=== PATIENT | male | born 1990 | race Caucasian/White ===

== ENCOUNTER 2023-07-20 03:06 | Inpatient (IN) ==
[2023-07-20] MEDS ORDERED: ONDANSETRON INJ 2 MG/ML 2 ML VIAL IV STA (03:20)
[2023-07-20] MEDS ORDERED: HYDROmorphone INJ 0.5 MG/0.5 ML SYR IV STA ×2 (03:20→06:03)
[2023-07-20] MEDS: KETOROLAC TROMETHAMINE 10 MG TABLET PO STA ×2 (03:39→04:05)
[2023-07-20] MEDS ORDERED: KETOROLAC TROMETHAMINE 15 MG/ML VIAL IV ONE (03:57)
[2023-07-20] MEDS ORDERED: SODIUM CHLORIDE 0.9% 1000ML 1,000 ML IV ONE ×2 (03:57→05:12)
[2023-07-20 04:01] LABS: Basophils # (auto) 0.01 K/uL (0.00-0.20); Basophils % (auto) 0.1 %; Eosinophils # (auto) 0.02 K/uL (0.00-0.50); Eosinophils % (auto) 0.2 %; Hematocrit (blood only) 44.9 % (42.0-52.0); Hemoglobin 15.7 g/dl (14.0-18.0); Immature Granulocytes # (auto) 0.02 K/uL (0.01-0.20); Immature Granulocytes % (auto) 0.2 %; Lymphocytes # (auto) 0.69 K/uL (1.20-3.40); Lymphocytes % (auto) 7.7 %; Mean Corpuscular Volume 88.7 fL (80.0-100.0); Mean Platelet Volume 9.5 fL (9.4-12.4); Monocytes # (auto) 0.35 K/uL (0.11-0.59); Monocytes % (auto) 3.9 %; Neutrophils # (auto) 7.83 K/uL (1.40-6.50); Neutrophils % (auto) 87.9 %; Platelet Count 247 K/uL (130-400); RDW Coefficient of Variation 11.7 % (11.5-14.5); RDW Standard Deviation 37.2 fL (36.4-46.3); Red Blood Count 5.06 M/uL (4.70-6.10); White Blood Count 8.92 K/ul (4.8-10.8)
[2023-07-20 04:32] LABS: Alanine Aminotransferase 36 U/L (7-52); Albumin Globulin Ratio 1.4 (0.9-2); Albumin Level 4.8 gm/dl (3.4-5.0); Alkaline Phosphatase 53 U/L (34-104); BUN Creatinine Ratio 14.4 (10-20); Bilirubin,Total 0.8 mg/dl (0.2-1.0); Blood Urea Nitrogen 17 mg/dl (6-23); Calcium 9.6 mg/dl (8.6-10.3); Carbon Dioxide 25 mmol/L (21-32); Chloride 100 mmol/L (98-107); Creatinine Clr Calc Pharmacy 85.7 ml/min; Est GFR (African American) 94.1 ml/min; Est GFR (Non-African American) 81.2 ml/min; Globulin 3.5 gm/dl (2.5-4.0); Glucose 115 mg/dl (70-99(Fasting)); Lipase 37 U/L (11-82); Total Protein 8.3 gm/dl (6.0-8.3)
[2023-07-20 05:04] LABS: Appearance Urine Clear (Clear); Bacteria Urine Automated Negative (Negative); Bilirubin Urine Negative (Negative); Blood Urine Negative (Negative); Color Urine Dark Yellow; Glucose Urine UA Negative (Negative); Ketones Urine 4+ (Negative); Leukocyte Esterase Urine Negative (Negative); Nitrite Urine Negative (Negative); Protein Urine 1+ (Negative); RBC Urine Automated 0-4 /hpf (0-4); Specific Gravity Urine 1.032 (1.000-1.030); Urobilinogen Urine Negative (Negative)
--- NOTE | 2023-07-20 07:38 | History & Physical Report ---
Date of Service July 20, 2023 Assessment & Plan (1) Right ureteral calculus: Plan: Renal Colic: Obstructive Uropathy: -KUB:No change in the 3 mm distal right ureteral stone. -Renal USD:No change in the mild right hydroureteronephrosis. The patient's known distal right ureteral stone is not identified by this modality. -UA not suggestive of UTI No signs of Sepsis Continue IV fluids Continue Flomax Pyridium PRN Urology consulted--appreciate input Strain Urine Bladder scan PRN Pain control Sinus bradycardia with Premature atrial complexes Asymptomatic Check TSH, Lyme screen Monitor Dysplastic nevus As per records DVT Px: SCDs for now CODE STATUS Full code History of Present Illness Chief Complaint: Right Flank Pain Primary Care Provider: Pedro Collins MD Patient is a 33-year-old male with history of dysplastic nevus as per records and no other significant past medical history presents with history of right lower quadrant/flank pain radiating to right groin for the past 4 to 5 days duration which has been gradually worsening. Patient describes pain to be sharp, 8/10 intensity, no aggravating, relieving factors. Denies any associated hematuria, dysuria, fever, chills, chest pain, dyspnea, dizziness. Admits to have nausea associated with vomiting x5 overnight secondary to pain. Renal ultrasound suggestive of right hydroureteronephrosis. KUB showed 3 mm distal right ureteral stone. Patient required several doses of IV narcotics for pain control while in ED. He presented to ED on July 16 with similar symptoms and was discharged home on Flomax, Zofran and as needed pain medications. He was advised to follow-up with urologist if could not pass the stone spontaneously. Denied any history of nephrolithiasis in the past. Allergies Allergy/AdvReac Type Severity Reaction Status Date / Time No Known Allergies Allergy Unknown Verified 06/17/09 19:11 Home Medications Medication Instructions Recorded Confirmed Type ibuprofen 600 mg tablet 600 mg PO Q6HR PRN ##0 07/04/09 07/20/23 History polyethylene glycol 3350 17 gram 17 g PO PRN ##0 07/04/09 07/20/23 History oral powder packet (Miralax) ondansetron 4 mg disintegrating 4 mg PO Q6H PRN nausea and 07/16/23 07/20/23 Rx tablet vomiting #12 tabs oxycodone 5 mg tablet 5 mg PO Q6 PRN pain #12 tabs 07/16/23 07/20/23 Rx tamsulosin 0.4 mg capsule (Flomax) 0.4 mg PO DAILY #10 caps 07/16/23 07/20/23 Rx bisacodyl 10 mg rectal suppository 10 mg [place] DAILY PRN Constipation 07/20/23 07/20/23 History (Dulcolax (bisacodyl)) Past Med/Surg History Medical History (Updated 07/20/23 @ 14:16 by Jonathan Barnett MD) Dysplastic nevus No significant medical problems Surgical History (Updated 07/20/23 @ 14:17 by Jonathan Barnett MD) History of appendectomy Family History (Updated 07/20/23 @ 14:18 by Jonathan Barnett MD) Brother Hypertension Social History (Updated 07/20/23 @ 14:17 by Jonathan Barnett MD) Smoking Status: Never smoker Hx Alcohol Use: No Hx Substance Use: No Preferred Language: Kittitian Feels Safe at Home: Yes Review of Systems Review of Systems: All systems reviewed & are unremarkable except as noted in Subjective Physical Exam Physical Exam: Physical Exam: Vitals signs as noted above General Appearance:Thin, no apparent distress Head: normocephalic, Atraumatic Eyes: normal inspection, EOMI Neck: supple, Trachea midline Respiratory/Chest: Normal breath sounds, CTA, No accessory muscle use Cardiovascular: S1, S2, No murmur Abdomen/GI:Soft, R flank tender, Bowel sounds present Extremities/Musculoskeletal:normal inspection, no edema Neurologic/Psych:AAOX3, grossly no focal neurological deficits Skin: normal color, warm Results & Data Results & Data Vital Signs (Past 12 Hours) Vital Signs Temp Pulse Pulse Resp BP BP Pulse Ox 07/20/23 06:24 79 18 145/93 H 98 07/20/23 03:55 50 L 07/20/23 04:33 73 18 111/84 92 07/20/23 03:10 37.1 C 77 17 134/77 100 O2 Del Method 07/20/23 06:24 Room Air 07/20/23 03:55 07/20/23 04:33 Room Air 07/20/23 03:10 Room Air Laboratory Results Short CBC 07/20/23 Range/Units 03:43 WBC 8.92 (4.8-10.8) K/ul Hgb 15.7 (14.0-18.0) g/dl Hct 44.9 (42.0-52.0) % Plt Count 247 (130-400) K/uL BMP 07/20/23 07/20/23 03:40 05:08 Sodium TNP 136 Potassium TNP 4.0 Chloride 100 Carbon Dioxide 25 BUN 17 Creatinine 1.18 Glucose 115 H Calcium 9.6 Liver Function 07/20/23 07/20/23 Range/Units 03:40 05:08 Total Bilirubin 0.8 (0.2-1.0) mg/dl AST TNP 19 ALT 36 (7-52) U/L Alkaline Phosphatase 53 (34-104) U/L Albumin 4.8 (3.4-5.0) gm/dl Urine 07/20/23 Range/Units 04:53 Urine Color Dark Yellow Urine Appearance Clear (Clear) Urine pH 6.0 (4.5-7.5) Ur Specific [place] 1.032 H (1.000-1.030) Urine Protein 1+ H (Negative) Urine Glucose (UA) Negative (Negative) Diagnostic Findings --KUB:No change in the 3 mm distal right ureteral stone. --Renal USD:No change in the mild right hydroureteronephrosis. The patient's known distal right ureteral stone is not identified by this modality. ECG Additional Comments: EKG: Sinus bradycardia with PACs QTc 376
--- NOTE | 2023-07-20 07:48 | XRay Report ---
KUB HISTORY: R flank pain, known stone COMPARISON: Abdomen and pelvis CT 07/16/2023. FINDINGS: The bowel gas pattern is unremarkable. There are no dilated loops of small bowel to suggest an obstruction. There is a 3 mm stone within the distal right ureter. This is unchanged in position compared the prior CT examination. Additional calcifications in the deep pelvis are consistent with phleboliths. No additional ureteral calculi. No pneumoperitoneum or pneumatosis. IMPRESSION: No change in the 3 mm distal right ureteral stone. ACT 112: Negative or not required by law. Electronically signed by: Matias Guzman M.D. 07/20/2023 7:46 AM
--- NOTE | 2023-07-20 07:50 | Ultrasound Report ---
RENAL ULTRASOUND HISTORY: R flank pain, known stone. [place]? COMPARISON: Abdomen and pelvis CT 07/16/2023. FINDINGS: Right kidney: 10.4 cm. Mild right hydroureteronephrosis. The patient's known distal right ureteral st one is not identified by this modality. Normal corticomedullary differentiation and cortical thicknes s. Trace right perinephric fluid. Left kidney: 11.6 cm. No hydronephrosis. Normal corticomedullary differentiation and cortical thickne ss. Bladder: No bladder wall thickening. Only the left ureteral jet was identified. IMPRESSION: No change in the mild right hydroureteronephrosis. The patient's known distal right ureteral stone is not identified by this modality. ACT 112: Negative or not required by law. Electronically signed by: Matias Guzman M.D. 07/20/2023 7:49 AM
--- NOTE | 2023-07-20 08:28 | Urology Consultation ---
Date of Consultation July 20, 2023 Assessment & Plan (1) Right ureteral calculus: (2) Acute right flank pain: (3) Vomiting: (4) Renal colic: (5) Hematuria: Plan Patient be admitted for right 4 mm ureteral stone in the distal ureter causing obstruction. Developed sudden onset of severe pain flank going into groin and abdomen. Patient was having symptoms considerable ill feelings with it. Has been going on and off. Had presented earlier in the week with similar issues. Stone is in similar position. Comes in waves. Severity has come and gone. Patient had been given medications for control. Has previously had some bowel related issues and takes some [id number] options for constipation. Has been having increasing pain discomfort. White count is stable at 8.92. Creatinine was 1.18. Hemoglobin was 15.7. All other labs were reviewed please see records for full report. Patient's vitals are currently stable is doing with mild hypertension possibly due to ongoing issues with pain. Blood pressure is 145/93. Pulse was 54. Was not satting 96% on room air. No signs of fever while in the ER. No measurable temperature over 38 C. Patient had imaging that was reviewed interpreted by myself. Has obstructing stone on the right side at the distal ureter causing obstruction and hydronephrosis. Discussed options for conservative measure and maximum expulsion medical therapy and symptom controlled. Discussed ESWL. Discussed Ureteroscopy with extraction and/or laser lithotripsy. Risks and benefits were discussed. Stone free rates were also discussed as well as possibility of multiple procedures. Ureteral stents were discussed as well as post-operative issues and pain management. All questions were answered. Reviewed extensively options. Patient is being admitted for supportive care with IV hydration. Is being admitted to the hospitalist team. We will plan to continue to monitor patient. All labs and vitals reviewed. Patient's complicated medical and surgical history was reviewed and summarized above. Discussed patient's previous history. No major family history of significant anesthesia or other issues. Reviewed possible surgical intervention with possible extraction of stone for stent placement. Risks and benefits discussed at length for procedure. These include bleeding, infection, injury to surrounding tissues or organs, and risks associated with anesthesia. Patient states understanding and agrees to proceed. Will sign consent and schedule. Plan for Cystoscopy with Right Ureteroscopy and stone treatment. Possible stent. History of Present Illness History of Present Illness New consultation for patient with stone, discomfort, obstruction, and ill feelings. Patient developed sudden onset of pain into flank going down and radiating into groin and back in waves comes and goes. Can be severe at times. Discussed and reviewed patient's family history for any history of stone di sease. Also, discussed patient's medical surgery history especially related to any history of urinary issues or stone disease. Patient was admitted and is undergoing observation. Allergies Allergy/AdvReac Type Severity Reaction Status Date / Time No Known Allergies Allergy Unknown Verified 06/17/09 19:11 Home Medications Medication Instructions Recorded Confirmed Type ibuprofen 600 mg tablet 600 mg PO Q6HR PRN ##0 07/04/09 07/20/23 History polyethylene glycol 3350 17 gram 17 g PO PRN ##0 07/04/09 07/20/23 History oral powder packet (Miralax) ondansetron 4 mg disintegrating 4 mg PO Q6H PRN nausea and 07/16/23 07/20/23 Rx tablet vomiting #12 tabs oxycodone 5 mg tablet 5 mg PO Q6 PRN pain #12 tabs 07/16/23 07/20/23 Rx tamsulosin 0.4 mg capsule (Flomax) 0.4 mg PO DAILY #10 caps 07/16/23 07/20/23 Rx bisacodyl 10 mg rectal suppository 10 mg [place] DAILY PRN Constipation 07/20/23 07/20/23 History (Dulcolax (bisacodyl)) Patient History Medical History No significant medical problems Social History Smoking Status: Never smoker Preferred Language: Swazi Feels Safe at Home: Yes Review of Systems Review of Systems: All systems reviewed & are unremarkable except as noted in HPI & below Physical Exam Physical Exam: General: Alert and oriented x 3 in no acute distress. Patient is well nourished and well kept. HEENT: Normocephalic Atraumatic. Inspection normal. Cranial Nerves 2-12 Grossly intact. Nares are clear. Neck is supple. Normal inspection of face. Normal inspection of neck. Neurologic: No deficits on inspection. Baseline for motor function and sensory. Psychologic: Normal affect. Respiratory: Nonlabored. No use of accessory muscles. No tachypnea or dyspnea. Cardiovascular: No tachycardia Skin: [place] and Dry. No rashes or visible lesions. Extremities: Moving without issues. No motor deficits on inspection Lymphatics: No edema Abdomen: Soft Non-distended. No acites. No rebound or guarding. Results & Data Vital Signs (Past 12 Hours) Vital Signs Temp Pulse Pulse Resp BP BP Pulse Ox 07/20/23 08:17 54 L 18 96 07/20/23 08:17 96 07/20/23 07:59 62 07/20/23 06:24 79 18 145/93 H 98 07/20/23 03:55 50 L 07/20/23 04:33 73 18 111/84 92 07/20/23 03:10 37.1 C 77 17 134/77 100 O2 Del Method 07/20/23 08:17 Room Air 07/20/23 08:17 Room Air 07/20/23 07:59 07/20/23 06:24 Room Air 07/20/23 03:55 07/20/23 04:33 Room Air 07/20/23 03:10 Room Air PG Care Time/CCT Total # of Minutes Spent Total Time Spent with Patient: Total time spent is greater than 50% in coordination of care (as documented) at patient's floor/unit and/or counseling patient: Coding Level of Care Code 58951 IN/OBS CONSULT LVL 5,80M Diagnoses Right ureteral calculus N20.1 Acute right flank pain R10.9 Vomiting R11.2 Nausea presence: with nausea Vomiting type: unspecified Renal colic N23 Hematuria R31.1 Hematuria type: benign essential microscopic (3) Vomiting Nausea presence: with nausea Vomiting type: unspecified Qualified Code(s): R11.2 - Nausea with vomiting, unspecified (5) Hematuria Hematuria type: benign essential microscopic Qualified Code(s): R31.1 - Benign essential microscopic hematuria
[2023-07-20] MEDS ORDERED: ACETAMINOPHEN 325 MG TAB PO PRN (11:24)
[2023-07-20] MEDS ORDERED: DOCUSATE SODIUM 100 MG CAP PO PRN (11:24)
[2023-07-20] MEDS ORDERED: POLYETHYLENE (MIRALAX) 17 GM PACK PO PRN (11:24)
[2023-07-20] MEDS ORDERED: KETOROLAC TROMETHAMINE 15 MG/ML VIAL IV PRN (11:24)
[2023-07-20] MEDS ORDERED: ONDANSETRON INJ 2 MG/ML 2 ML VIAL IV PRN (11:24)
[2023-07-20] MEDS ORDERED: HYDROmorphone INJ 0.5 MG/0.5 ML SYR IV PRN (11:32)
[2023-07-20] MEDS ORDERED: LIDOCAINE 2% 2 ML VIAL/AMP(20MG/ML) INFIL ONE (11:35)
[2023-07-20] MEDS ORDERED: MIDAZOLAM HCL 1 MG/ML 2ML VIAL ONE (11:35)
[2023-07-20] MEDS ORDERED: ONDANSETRON INJ 2 MG/ML 2 ML VIAL ONE (11:35)
[2023-07-20] MEDS ORDERED: fentaNYL citrate PF 100 MCG/2 ML VIAL ONE (11:35)
[2023-07-20] MEDS ORDERED: KETAMINE 50 MG/5 ML SYRINGE ONE (11:35)
[2023-07-20] MEDS ORDERED: PROPOFOL IV EMULSION 10 MG/ML 20 ML VIAL IV ONE ×2 (11:35→12:25)
[2023-07-20] MEDS ORDERED: TAMSULOSIN HCL 0.4 MG CAP PO ONE (11:45)
[2023-07-20] MEDS ORDERED: FAMOTIDINE 10 MG TABLET PO ONE (11:45)
--- NOTE | 2023-07-20 11:52 | Anesthesiology Consultation ---
Date of Service July 20, 2023 Assessment & Plan Chart Review Chart Review: Acceptable Risk for Surgery and Patient NOT seen in Pre Admission Testing ASA ASA2 Proposed Anesthesia Anesthesia Type: MAC Risk / Benefits Reviewed With: PT / POA / Parent / Guardian, Accepts Plan and Informed Consent Obtained History Surgery Operation Date: 07/20/23 15:00 Proposed Procedures p Cystoscopy with Right Ureteral Stent Insertion - Teddy Marquez DO Height/Weight Height: 6 ft Weight: 67.4 kg Allergies Allergy/AdvReac Type Severity Reaction Status Date / Time No Known Allergies Allergy Unknown Verified 06/17/09 19:11 Medications Home Medications Medication Instructions Recorded Confirmed Last Taken ibuprofen 600 mg tablet 600 mg PO Q6HR PRN ##0 07/04/09 07/20/23 Unknown polyethylene glycol 3350 17 gram 17 g PO PRN ##0 07/04/09 07/20/23 Unknown oral powder packet (Miralax) ondansetron 4 mg disintegrating 4 mg PO Q6H PRN nausea and 07/16/23 07/20/23 Un known tablet vomiting #12 tabs oxycodone 5 mg tablet 5 mg PO Q6 PRN pain #12 tabs 07/16/23 07/20/23 Unknown tamsulosin 0.4 mg capsule (Flomax) 0.4 mg PO DAILY #10 caps 07/16/23 07/20/23 Unknown bisacodyl 10 mg rectal suppository 10 mg [place] DAILY PRN Constipation 07/20/23 07/20/23 Unknown (Dulcolax (bisacodyl)) NPO Date Last Intake of Fluids: 07/20/23 Time Last Intake of Fluids: 07:00 Last Intake of Fluids Comment: sip of water Date Last Intake of Solids: 07/20/23 Time Last Intake of Solids: 06:30 Past Medical History Medical History No significant medical problems Social History Smoking Status: Never smoker Physical Exam Vital Signs Last Vital Signs Temp 37.1 C 07/20/23 03:10 Pulse 78 07/20/23 10:00 Resp 18 07/20/23 10:00 BP 140/95 07/20/23 10:00 Pulse Ox 97 07/20/23 10:00 O2 Del Method Room Air 07/20/23 10:00 Testing Laboratory Results 07/20/23 03:43 07/20/23 05:08 Urine Color Dark Yellow 07/20/23 04:53 Urine Appearance Clear (Clear) 07/20/23 04:53 Urine pH 6.0 (4.5-7.5) 07/20/23 04:53 Ur Specific [place] 1.032 (1.000-1.030) H 07/20/23 04:53 Urine Protein 1+ (Negative) H 07/20/23 04:53 Urine Glucose (UA) Negative (Negative) 07/20/23 04:53 Urine Ketones 4+ (Negative) H 07/20/23 04:53 Urine Nitrite Negative (Negative) 07/20/23 04:53 Ur Leukocyte Esterase Negative (Negative) 07/20/23 04:53 Urine WBC (Auto) 1-5 /hpf (0-5) 07/20/23 04:53 Urine RBC (Auto) 0-4 /hpf (0-4) 07/20/23 04:53 U Hyaline Cast (Auto) 1-5 /lpf (0-5) 07/20/23 04:53 U Epithel Cells (Auto) 5-10 /lpf (0-5) H 07/20/23 04:53 Urine Bacteria (Auto) Negative (Negative) 07/20/23 04:53
[2023-07-20] MEDS ORDERED: ceFAZolin 2,000 MG/15 ML IV PUSH IV ONE (11:53)
[2023-07-20] MEDS ORDERED: HYDROmorphone INJ 1 MG/ML SYRINGE IV PRN (11:56)
[2023-07-20] MEDS ORDERED: NALOXONE HCL 0.4 MG/1 ML VIAL/CARP IV PRN (11:56)
[2023-07-20] MEDS ORDERED: PROMETHAZINE HCL 12.5 MG in SODIUM CHLORIDE 0.9% 50 ML IV PRN (11:56)
[2023-07-20] MEDS ORDERED: ATROPINE SULFATE 0.1 MG/ML 10ML SYR IV PRN (11:56)
[2023-07-20] MEDS ORDERED: ePHEDrine sulfate 50 MG/ML AMP IV PRN (11:56)
[2023-07-20] MEDS ORDERED: ceFAZolin 2000MG 2,000 MG/15 ML SYR IV ONE ×2 (12:02→12:38)
[2023-07-20] MEDS ORDERED: DIATRIZOATE MEGLUMINE 30% 100ML VIAL INSTIL ONE (12:37)
--- NOTE | 2023-07-20 12:51 | Operative Report ---
PG Post Operative Report Pre & Post Diagnosis Operation Date: 07/20/23 15:00 Pre-Op Diagnosis: Right ureteral calculus Post-Op Diagnosis: Right ureteral calculus I identified the patient and participated in the time-out.: Yes Procedure Operation Date: 07/20/23 15:00 Actual Procedures p Cystoscopy with Right Retrograde, Right Ureteroscopy, Basket stone Extraction, and Insertion Right Ureteral Stent - Teddy Marquez DO Surgeon Teddy Marquez, II, DO Senior Data Architect None Estimated Blood Loss 1 Findings Consistent with Post-Op Diagnosis Right Stone removed. Specimens Stone Right Ureter Drains 6 Fr Multilength Anesthesia Type General Complications none Disposition Disposition: Recovery Room Indications Patient with bothersome stones. Risks and benefits discussed at length. Description of Procedure Patient was consented and brought back to the operating room. Patient was placed under anesthesia in the supine position and moved to the dorsal lithotomy position. Patient was prepped and draped in the regular sterile fashion. A time out was completed. A 30degree Cystoscope was placed into the bladder and the entire bladder was examined. The UO's were identified. The UO was cannulized with a catheter and a retrograde pyelogram was completed. A wire was then placed. The Rigid ureteroscope was taken into the ureter. The stone was identified. The stone was grasped and removed and sent for analysis. The entire area was once again examined. No residual large fragments or areas of concern were noted. The scope was slowly removed with the wire left in place. Contrast was placed through the scope for a pyelogram to assist in stent placement. The entire ureter was examined as the scope was slowly removed. No obstructions or other areas of concern were noted. With the wire in place, a 6 Fr Double J stent was placed. It was confirmed with fluoroscopy. With the stent in place, the bladder was emptied. The scope was removed. The patient was cleaned, aroused from anesthesia, and transferred to the pacu in stable condition having tolerated the procedure well with no compl ications. I was present and participated in all aspects of the procedure. The patient will be monitored in the PACU until transferred. Plan to remove stent in office in later this week, likely Friday. I attest to the content of the Intraoperative Record and any orders documented therein. Any exceptions are noted below.
--- NOTE | 2023-07-20 12:53 | Fluoroscopy Report ---
FL retrograde includes kub CLINICAL HISTORY: RT SIDE STENT COMPARISON STUDY: None. FLUOROSCOPY TIME: 21 seconds FLUOROSCOPY IMAGES: 2 Ka,r: 3.3 mGy FINDINGS: There is retrograde opacification of the right renal collecting system followed by brynn t of a right ureteral stent. The ureteral stent appears in good position. IMPRESSION: Fluoroscopic assistance as above. ACT 112: Negative or not required by law. Electronically signed by: Matias Guzman M.D. 07/20/2023 12:51 PM
--- NOTE | 2023-07-20 13:27 | Anesthesiology Progress Note ---
Date of Service July 20, 2023 Anesthesia Post Procedure Vital Signs Vital Signs: Temp Pulse Pulse Resp BP BP Pulse Ox 07/20/23 13:20 49 L 13 124/79 97 07/20/23 13:10 36.4 C L 44 L 12 125/78 98 07/20/23 13:00 45 L 15 118/73 100 07/20/23 12:50 36.4 C L 64 16 129/79 99 07/20/23 10:00 78 18 140/95 97 07/20/23 08:17 54 L 18 96 07/20/23 08:17 96 07/20/23 07:59 62 07/20/23 06:24 79 18 145/93 H 98 07/20/23 03:55 50 L 07/20/23 04:33 73 18 111/84 92 07/20/23 03:10 37.1 C 77 17 134/77 100 O2 Del Method O2 Flow Rate 07/20/23 13:20 Room Air 07/20/23 13:10 Room Air 07/20/23 13:00 Oxymask 4 07/20/23 12:50 Oxymask 4 07/20/23 10:00 Room Air 07/20/23 08:17 Room Air 07/20/23 08:17 Room Air 07/20/23 07:59 07/20/23 06:24 Room Air 07/20/23 03:55 07/20/23 04:33 Room Air 07/20/23 03:10 Room Air Pain Intensity Right Flank: Pain Intensity: 3 Transfer of Care Handoff Completed per policy Notes Mental Status: alert / awake / arousable Patient Amnestic to Procedure: Yes Nausea / Vomiting: adequately controlled Pain: adequately controlled Airway Patency, RR, SpO2: stable & adequate BP & HR: stable & adequate Hydration State: stable & adequate Anesthetic Complications: no major complications apparent and Pt Satisfied with anesthetic care
[2023-07-20] MEDS: SODIUM CHLORIDE 0.9% 1000ML 1,000 ML IV SCH ×2 (15:32→22:31)
[2023-07-20] MEDS: PHENAZOPYRIDINE HCL 200 MG TAB PO PRN ×2 (15:58→22:32)
--- NOTE | 2023-07-20 21:14 | Emergency Department Note ---
Impression & Plan Renal colic, Right ureteral calculus ED Provider Note CHIEF COMPLAINT: R flank pain HISTORY OF PRESENT ILLNESS: This 33-year-old male patient presents to the emergency department with complaints of right-sided flank pain. The patient was evaluated in the ED several days ago and diagnosed with a 4 mm distal left ureteral stone. He has been on Flomax and felt as though his symptoms were im proving. Over the last 12 hours the patient has had a resurgence of pain and he has not been able to control. Pain medicine prescribed made him vomit. He is urinating without difficulty. He has not noticed any blood. He denies fevers. REVIEW OF SYSTEMS: A review of systems was performed with positives and pertinent negatives listed in the history of present illness. 10 systems were reviewed and are otherwise negative. ALLERGIES: see below MEDICATIONS: see below PMH: see below SOCIAL HISTORY: see below DDx: Renal colic, UTI/pyelonephritis, appendicitis, diverticulitis, bladder stone, as well as other pathologies. PHYSICAL EXAM: Vital signs reviewed. General: Well-appearing 33-year-old male, in no significant distress. HEENT: No scleral icterus, PERRLA, neck supple. Atraumatic. Cardiovascular: Regular rate and rhythm, no extra sounds. Pulmonary: Clear to auscultation bilaterally, normal work of breathing. Abdomen: Soft, nontender, nondistended, positive bowel sounds. Musculoskeletal: Atraumatic, no peripheral edema. Positive mild right-sided CVA tenderness, negative left Neurologic: Patient awake alert and oriented x 3, speech is clear Skin: Warm, dry, no rash EMERGENCY DEPARTMENT COURSE/MDM: This patient was evaluated and appeared to be in some discomfort. External medical records were reviewed IV access was obtained and laboratory work was drawn. Patient was hydrated with normal saline solution, given IV Dilaudid, IV Toradol and Zofran. Patient did take Flomax by mouth at home. KUB was performed and reveals a distal ureteral stone, mild hydronephrosis on the right on ultrasound. UA is negative for infection. Patient did require second dose of IV Dilaudid for pain control. He did not feel that he would be able to manage his symptoms at home. Patient was evaluated by the hospitalist service for admission and urology, Dr. Marquez was notified. Patient is aware of the plan and agrees. MONITORING: An order for cardiac monitoring was placed and the patient is noted to be in a normal sinus rhythm at 73 beats per minute. RADIOLOGY: KUB to my interpretation reveals a pelvic calcification consistent with patient's known ureteral stone. Renal ultrasound per radiology reveals mild right hydronephrosis that is unchanged, no stone identified. Please see final read below. EKG: To my interpretation reveals a sinus bradycardia at 55 bpm, normal ST segments, no PVC, no PAC. QTc of 401. DISPOSITION: Admit Past Med/Surg History Medical History (Updated 07/21/23 @ 18:19 by Alia Bynum MD) Dysplastic nevus No significant medical problems Surgical History (Updated 07/20/23 @ 14:17 by Jonathan Barnett MD) History of appendectomy Family History (Updated 07/20/23 @ 14:18 by Jonathan Barnett MD) Brother Hypertension Social History (Updated 07/20/23 @ 14:17 by Jonathan Barnett MD) Smoking Status: Never smoker Hx Alcohol Use: No Hx Substance Use: No Preferred Language: [place] Communication Ability: Effective Manager Group Home Required: No Beliefs That Will Affect Care: None Current Living Situation: Spouse Feels Safe at Home: Yes Allergies Allergies Allergy/AdvReac Type Severity Reaction Status Date / Time No Known Allergies Allergy Unknown Verified 06/17/09 19:11 Home Meds Home Medications Medication Instructions Recorded Confirmed polyethylene glycol 3350 17 gram 17 g PO PRN ##0 07/04/09 07/20/23 oral powder packet (Miralax) bisacodyl 10 mg rectal suppository 10 mg SC DAILY PRN Constipation 07/20/23 07/20/23 (Dulcolax (bisacodyl)) Previous Rx's Medication Instructions Recorded ondansetron 4 mg disintegrating 4 mg PO Q6H PRN nausea and 07/16/23 tablet vomiting #12 tabs tamsulosin 0.4 mg capsule (Flomax) 0.4 mg PO DAILY #10 caps 07/16/23 famotidine 10 mg tablet (Acid 10 mg PO BID #10 tabs 07/21/23 Spool Maker (famotidine)) ketorolac 10 mg tablet 10 mg PO BID PRN pain #10 tabs 07/21/23 phenazopyridine 200 mg tablet 200 mg PO TID PRN pain #15 tabs 07/21/23 (Pyridium) Results & Data (ED) Vital Signs Vital Signs - 24 hr 07/20/23 03:10 07/20/23 04:33 07/20/23 03:55 Temperature 37.1 C Temperature Source Temporal Artery Scan Pulse Rate 77 50 L Pulse Rate [Apical] 73 Respiratory Rate 17 18 Blood Pressure 134/77 Blood Pressure [Left Arm] 111/84 Blood Pressure Mean 96 Blood Pressure Mean [Left Arm] 93 Blood Pressure Position [Left Arm] Lying Pulse Oximetry 100 92 Oxygen Delivery Method Room Air Room Air Sepsis Recent Fever Within 48 Hours No Sepsis New/Unexplained Change in Mental Status No Sepsis Action Taken by Nursing No Action Required 07/20/23 06:24 Temperature Temperature Source Pulse Rate Pulse Rate [Apical] 79 Respiratory Rate 18 Blood Pressure Blood Pressure [Left Arm] 145/93 H Blood Pressure Mean Blood Pressure Mean [Left Arm] 110 Blood Pressure Position [Left Arm] Semi-fowlers Pulse Oximetry 98 Oxygen Delivery Method Room Air Sepsis Recent Fever Within 48 Hours Sepsis New/Unexplained Change in Mental Status Sepsis Action Taken by Nursing Laboratory Data 07/20/23 03:43 07/20/23 05:08 Lab Results 07/20/23 07/20/23 07/20/23 Range/Units 03:40 03:43 04:53 WBC 8.92 (4.8-10.8) K/ul RBC 5.06 (4.70-6.10) M/uL Hgb 15.7 (14.0-18.0) g/dl Hct 44.9 (42.0-52.0) % MCV 88.7 (80.0-100.0) fL MCH 31.0 (25.0-34.0) pg MCHC 35.0 (32.0-36.0) g/dL RDW Std Deviation 37.2 (36.4-46.3) fL RDW Coeff of Kerri 11.7 (11.5-14.5) % Plt Count 247 (130-400) K/uL MPV 9.5 (9.4-12.4) fL Immature Gran % (Auto) 0.2 % Neut % (Auto) 87.9 % Lymph % (Auto) 7.7 % [place] % (Auto) 3.9 % Eos % (Auto) 0.2 % Baso % (Auto) 0.1 % Neut # (Auto) 7.83 H (1.40-6.50) K/uL Lymph # (Auto) 0.69 L (1.20-3.40) K/uL [place] # (Auto) 0.35 (0.11-0.59) K/uL Eos # (Auto) 0.02 (0.00-0.50) K/uL Baso # (Auto) 0.01 (0.00-0.20) K/uL Immature Gran # (Auto) 0.02 (0.01-0.20) K/uL Sodium TNP Potassium TNP Chloride 100 (98-107) mmol/L Carbon Dioxide 25 (21-32) mmol/L Anion Gap TNP BUN 17 (6-23) mg/dl Creatinine 1.18 (0.6-1.4) mg/dl Est Cr Clr Drug Dosing 85.7 ml/min Est GFR ( Amer) 94.1 ml/min Est GFR (Non-Af Amer) 81.2 ml/min BUN/Creatinine Ratio 14.4 (10-20) Glucose 115 H (70-99(Fasting)) mg/dl Calcium 9.6 (8.6-10.3) mg/dl Total Bilirubin 0.8 (0.2-1.0) mg/dl AST TNP ALT 36 (7-52) U/L Alkaline Phosphatase 53 (34-104) U/L Total Protein 8.3 (6.0-8.3) gm/dl Albumin 4.8 (3.4-5.0) gm/dl Globulin 3.5 (2.5-4.0) gm/dl Albumin/Globulin Ratio 1.4 (0.9-2) Lipase 37 (11-82) U/L Urine Color Dark Yellow Urine Appearance Clear (Clear) Urine pH 6.0 (4.5-7.5) Ur Specific [place] 1.032 H (1.000-1.030) Urine Protein 1+ H (Negative) Urine Glucose (UA) Negative (Negative) Urine Ketones 4+ H (Negative) Urine Blood Negative (Negative) Urine Nitrite Negative (Negative) Urine Bilirubin Negative (Negative) Urine Urobilinogen Negative (Negative) Ur Leukocyte Esterase Negative (Negative) Urine WBC (Auto) 1-5 (0-5) /hpf Urine RBC (Auto) 0-4 (0-4) /hpf U Hyaline Cast (Auto) 1-5 (0-5) /lpf U Epithel Cells (Auto) 5-10 H (0-5) /lpf Urine Bacteria (Auto) Negative (Negative) 07/20/23 Range/Units 05:08 WBC (4.8-10.8) K/ul RBC (4.70-6.10) M/uL Hgb (14.0-18.0) g/dl Hct (42.0-52.0) % MCV (80.0-100.0) fL MCH (25.0-34.0) pg MCHC (32.0-36.0) g/dL RDW Std Deviation (36.4-46.3) fL RDW Coeff of Kerri (11.5-14.5) % Plt Count (130-400) K/uL MPV (9.4-12.4) fL Immature Gran % (Auto) % Neut % (Auto) % Lymph % (Auto) % [place] % (Auto) % Eos % (Auto) % Baso % (Auto) % Neut # (Auto) (1.40-6.50) K/uL Lymph # (Auto) (1.20-3.40) K/uL [place] # (Auto) (0.11-0.59) K/uL Eos # (Auto) (0.00-0.50) K/uL Baso # (Auto) (0.00-0.20) K/uL Immature Gran # (Auto) (0.01-0.20) K/uL Sodium 136 Potassium 4.0 Chloride (98-107) mmol/L Carbon Dioxide (21-32) mmol/L Anion Gap BUN (6-23) mg/dl Creatinine (0.6-1.4) mg/dl Est Cr Clr Drug Dosing ml/min Est GFR ( Amer) ml/min Est GFR (Non-Af Amer) ml/min BUN/Creatinine Ratio (10-20) Glucose (70-99(Fasting)) mg/dl Calcium (8.6-10.3) mg/dl Total Bilirubin (0.2-1.0) mg/dl AST 19 ALT (7-52) U/L Alkaline Phosphatase (34-104) U/L Total Protein (6.0-8.3) gm/dl Albumin (3.4-5.0) gm/dl Globulin (2.5-4.0) gm/dl Albumin/Globulin Ratio (0.9-2) Lipase (11-82) U/L Urine Color Urine Appearance (Clear) Urine pH (4.5-7.5) Ur Specific [place] (1.000-1.030) Urine Protein (Negative) Urine Glucose (UA) (Negative) Urine Ketones (Negative) Urine Blood (Negative) Urine Nitrite (Negative) Urine Bilirubin (Negative) Urine Urobilinogen (Negative) Ur Leukocyte Esterase (Negative) Urine WBC (Auto) (0-5) /hpf Urine RBC (Auto) (0-4) /hpf U Hyaline Cast (Auto) (0-5) /lpf U Epithel Cells (Auto) (0-5) /lpf Urine Bacteria (Auto) (Negative) Administered Medications Discontinued Medications Cefazolin Sodium (Cefazolin 2,000 Mg/15 Ml Iv Push) Confirm Administered Dose 2,000 mg IV .ST-MED ONE Stop: 07/20/23 11:54 Last Admin: 07/20/23 15:13 Dose: Not Given Documented By: CRIS Diatrizoate Meglumine (Diatrizoate Meglumine 30% 100ml Vial) 8 ml INSTIL ONCE ONE Stop: 07/20/23 12:38 Last Admin: 07/20/23 12:37 Dose: 8 ml Documented By: [id number] Famotidine (Famotidine 10 Mg Tablet) 10 mg PO BID DC Stop: 08/19/23 20:59 Last Admin: 07/21/23 08:52 Dose: 10 mg Documented By: Admin: 07/20/23 22:33 Dose: 10 mg Documented By: ADA Famotidine (Famotidine 10 Mg Tablet) 10 mg PO NOW ONE Stop: 07/20/23 11:46 Last Admin: 07/20/23 15:57 Dose: 10 mg Documented By: CRIS Hydromorphone HCl (Hydromorphone Inj 0.5 Mg/0.5 Ml Syr) 0.5 mg IV NOW STA Stop: 07/20/23 03:21 Last Admin: 07/20/23 03:37 Dose: 0.5 mg Documented By: Hydromorphone HCl (Hydromorphone Inj 0.5 Mg/0.5 Ml Syr) 0.5 mg IV NOW STA Stop: 07/20/23 06:04 Last Admin: 07/20/23 06:23 Dose: 0.5 mg Documented By: Sodium Chloride (Nss 1000ml) 1,000 mls @ 999 mls/hr IV .Q1H1M ONE Stop: 07/20/23 04:57 Last Infusion: 07/20/23 05:10 Dose: 0 mls/hr Documented By: Admin: 07/20/23 04:08 Dose: 999 mls/hr Documented By: ELIAS Sodium Chloride (Nss 1000ml) 1,000 mls @ 999 mls/hr IV .Q1H1M ONE Stop: 07/20/23 06:12 Last Infusion: 07/20/23 06:24 Dose: 0 mls/hr Documented By: Admin: 07/20/23 05:19 Dose: 999 mls/hr Documented By: Sodium Chloride (Nss 1000ml) 1,000 mls @ 125 mls/hr IV .Q8H DC Stop: 08/19/23 11:23 Last Infusion: 07/21/23 13:38 Dose: 0 mls/hr Documented By: Admin: 07/21/23 11:34 Dose: Not Given Documented By: Infusion: 07/21/23 11:34 Dose: 125 mls/hr Documented By: Infusion: 07/21/23 11:34 Dose: 125 mls/hr Documented By: Admin: 07/21/23 07:22 Dose: 125 mls/hr Documented By: Infusion: 07/21/23 07:21 Dose: 125 mls/hr Documented By: Admin: 07/20/23 22:31 Dose: 125 mls/hr Documented By: Infusion: 07/20/23 22:31 Dose: 125 mls/hr Documented By: Admin: 07/20/23 15:32 Dose: 125 mls/hr Documented By: CRIS Cefazolin Sodium (Ancef 2000mg) 2,000 mg in 15 mls @ 3.75 mls/min IV ONCE ONE; Protocol Stop: 07/20/23 12:41 Last Admin: 07/20/23 12:05 Dose: 3.75 mls/min Documented By: DON Ketorolac Tromethamine (Ketorolac Tromethamine 10 Mg Tablet) 10 mg PO NOW STA Stop: 07/20/23 03:20 Last Admin: 07/20/23 04:05 Dose: Not Given Documented By: ELIAS Ketorolac Tromethamine (Ketorolac Tromethamine 15 Mg/Ml Vial) 10 mg IV NOW ONE Stop: 07/20/23 03:58 Last Admin: 07/20/23 04:08 Dose: 10 mg Documented By: ELIAS Ketorolac Tromethamine (Ketorolac Tromethamine 15 Mg/Ml Vial) 10 mg IV Q6H PRN PRN Reason: Mild-Mod Pain (Scale 1-6) Stop: 07/21/23 16:00 Last Admin: 07/20/23 22:33 Dose: 10 mg Documented By: ADA Ondansetron HCl (Ondansetron Inj 2 Mg/Ml 2 Ml Vial) 4 mg IV NOW STA Stop: 07/20/23 03:21 Last Admin: 07/20/23 03:37 Dose: 4 mg Documented By: Phenazopyridine HCl (Phenazopyridine Hcl 200 Mg Tab) 200 mg PO TID PRN PRN Reason: Dysuria Stop: 08/19/23 11:23 Last Admin: 07/21/23 08:52 Dose: 200 mg Documented By: Admin: 07/20/23 22:32 Dose: 200 mg Documented By: Admin: 07/20/23 15:58 Dose: 200 mg Documented By: CRIS Tamsulosin HCl (Tamsulosin Hcl 0.4 Mg Cap) 0.4 mg PO DAILY DC Stop: 08/20/23 08:59 Last Admin: 07/21/23 08:52 Dose: 0.4 mg Documented By: CRIS Tamsulosin HCl (Tamsulosin Hcl 0.4 Mg Cap) 0.4 mg PO NOW ONE Stop: 07/20/23 11:46 Last Admin: 07/20/23 15:57 Dose: 0.4 mg Documented By: CRIS Discharge Plan Visit Data Chief Complaint: Kidney Stone Stated Complaint: KIDNEY STONE, VOMITTING SINCE 1999 LAST NIGHT ED Provider: Alia Bynum Discharge Problem: Renal colic, Right ureteral calculus Patient Disposition: Admitted As Inpatient Discharge Instructions Interventions: ED Discharge Assessment Last Done: 07/20/23 11:08
[2023-07-20] MEDS: FAMOTIDINE 10 MG TABLET PO SCH (22:33)
[2023-07-21] MEDS: SODIUM CHLORIDE 0.9% 1000ML 1,000 ML IV SCH ×2 (07:22→11:34)
[2023-07-21 08:03] LABS: Hematocrit (blood only) 36.3 % (42.0-52.0); Hemoglobin 12.3 g/dl (14.0-18.0); Mean Corpuscular Hemoglobin 30.7 pg (25.0-34.0); Mean Corpuscular Hgb Conc 33.9 g/dL (32.0-36.0); Mean Corpuscular Volume 90.5 fL (80.0-100.0); Mean Platelet Volume 9.8 fL (9.4-12.4); Platelet Count 166 K/uL (130-400); RDW Coefficient of Variation 11.9 % (11.5-14.5); RDW Standard Deviation 39.2 fL (36.4-46.3); Red Blood Count 4.01 M/uL (4.70-6.10); White Blood Count 4.27 K/ul (4.8-10.8)
[2023-07-21 08:28] LABS: BUN Creatinine Ratio 14.7 (10-20); Calcium 8.1 mg/dl (8.6-10.3); Est GFR (African American) 112.2 ml/min; Est GFR (Non-African American) 96.8 ml/min; Magnesium 1.8 mg/dl (1.7-2.4); Potassium 4.3 mmol/L (3.5-5.1)
[2023-07-21 08:39] LABS: Lyme Ab IgG w/WB Rflx Negative (Negative); Lyme Ab IgM w/WB Rflx Negative (Negative)
[2023-07-21] MEDS: FAMOTIDINE 10 MG TABLET PO SCH (08:52)
[2023-07-21] MEDS: PHENAZOPYRIDINE HCL 200 MG TAB PO PRN (08:52)
--- NOTE | 2023-07-21 08:59 | Urology Progress Note ---
Date of Service July 21, 2023 Assessment & Plan (1) Right ureteral calculus: Plan: - Pt POD#1 s/p Cystoscopy with Right Retrograde, Right Ureteroscopy, Basket stone Extraction, and InsertionRight Ureteral Stent - Doing well, progressing as expected - Afebrile, lab work reviewed - creatinine 1.02, WBC 4.27 - Tolerating right ureteral stent with minimal bother - Okay to d/c from perspective when medically stable - Recommend d/c with course Tamsulosin, prn Pyridium and Oxybutynin for stent management - Expected clinical course reviewed, all questions answered - Will arrange outpatient follow-up with our service for stent removal Admission and Anticipated Discharge Date Admission Date: July 20, 2023 Subjective Patient seen and examined at bedside this morning, chart reviewed present No acute issues overnight Reports right flank discomfort with voiding Voiding spontaneously Hematuria post procedure, no dysuria Denies nausea, vomiting, fever or chills Review of Systems Constitutional: as per Subjective / HPI Gastrointestinal: as per Subjective / HPI Genitourinary: + as per Subjective / HPI Physical Exam Physical Exam: General: well-appearing, no acute distress HEENT: Normocephalic, mucous membranes moist Pulmonary: Nonlabored respirations Abdomen: Nondistended Extremities: Moves all 4 spontaneously Neuro: No gross deficits Psych: alert and oriented, normal mood Skin: Warm, dry, no rashes noted Results & Data Vital Signs (Past 12 Hours) Vital Signs Temp Pulse Pulse Resp BP BP Pulse Ox 07/21/23 08:36 37.0 C 55 L 17 114/70 99 07/21/23 06:00 49 L 07/21/23 04:00 36.7 C 60 18 114/71 97 07/21/23 01:00 76 07/20/23 22:25 36.7 C 60 18 129/84 99 O2 Del Method 07/21/23 08:36 Room Air 07/21/23 06:00 07/21/23 04:00 Room Air 07/21/23 01:00 07/20/23 22:25 Room Air PG Care Time/CCT Total # of Minutes Spent Total Time Spent with Patient: Total time spent is greater than 50% in coordination of care (as documented) at patient's floor/unit and/or counseling patient: Coding Level of Care Code 85905 SUB INP/OBS CARE 1/25MIN Diagnoses Right ureteral calculus N20.1
[2023-07-21] MEDS ORDERED: TAMSULOSIN HCL 0.4 MG CAP PO SCH (09:00)
--- NOTE | 2023-07-21 13:20 | Hospitalist Progress Note ---
Date of Service July 21, 2023 Assessment & Plan (1) Right ureteral calculus: Plan: Renal Colic: Obstructive Uropathy: -KUB:No change in the 3 mm distal right ureteral stone. -Renal USD:No change in the mild right hydroureteronephrosis. The patient's known distal right ureteral stone is not identified by this modality. -UA not suggestive of UTI No signs of Sepsis --S/P Cystoscopy with Right Retrograde, Right Ureteroscopy, Basket stone Extraction, and InsertionRight Ureteral Stent by Dr. Marquez on 07/20/2023 Continue IV fluids Continue Flomax Pyridium PRN Urology consulted--appreciate input Bladder scan PRN Pain control Plan to discharge home today Needs follow-up with urology upon discharge Sinus bradycardia with Premature atrial complexes Asymptomatic Bradycardia likely physiologic PACs on repeat EKG Normal TSH Lyme screen negative Not on any AV derek blocking agents Advised to follow-up with PCP/cardiology as outpatient Dysplastic nevus As per records DVT Px: SCDs for now CODE STATUS Full code Disposition Home Admission and Anticipated Discharge Date Admission Date: July 20, 2023 Subjective Patient seen and examined at bedside Reports having some stent discomfort, minimal hematuria Flank pain much improved No other complaints Denies any nausea, vomiting, chest pain, dyspnea, dizziness Plan to be discharged home today No events overnight Review of Systems Review of Systems: All systems reviewed & are unremarkable except as noted in Subjective Physical Exam Physical Exam: Physical Exam: Vitals signs as noted above General Appearance:Thin, no apparent distress Head: normocephalic, Atraumatic Eyes: normal inspection, EOMI Neck: supple, Trachea midline Respiratory/Chest: Normal breath sounds, CTA, No accessory muscle use Cardiovascular: S1, S2, No murmur,+bradycardia Abdomen/GI:Soft, non tender, Bowel sounds present Extremities/Musculoskeletal:normal inspection, no edema Neurologic/Psych:AAOX3, grossly no focal neurological deficits Skin: normal color, warm Results & Data Results & Data Vital Signs (Past 12 Hours) Vital Signs Temp Pulse Pulse Resp BP BP Pulse Ox 07/21/23 11:08 37.2 C 59 L 16 120/74 97 07/21/23 08:36 37.0 C 55 L 17 114/70 99 07/21/23 06:00 49 L 07/21/23 04:00 36.7 C 60 18 114/71 97 O2 Del Method 07/21/23 11:08 Room Air 08/28/23 08:36 Room Air 07/21/23 06:00 07/21/23 04:00 Room Air Laboratory Results Short CBC 07/21/23 Range/Units 06:55 WBC 4.27 L (4.8-10.8) K/ul Hgb 12.3 L D (14.0-18.0) g/dl Hct 36.3 L (42.0-52.0) % Plt Count 166 (130-400) K/uL BMP 07/21/23 06:55 Sodium 139 Potassium 4.3 Chloride 108 H Carbon Dioxide 29 BUN 15 Creatinine 1.02 Glucose 86 Calcium 8.1 L
[2023-07-21] MEDS ORDERED: KETOROLAC TROMETHAMINE 10 MG TABLET PO PRN (13:23)
--- NOTE | 2023-07-21 13:28 | Discharge Summary ---
Date of Service July 21, 2023 Admission HPI Per Admitting Provider Patient is a 33-year-old male with history of dysplastic nevus as per records and no other significant past medical history presents with history of right lower quadrant/flank pain radiating to right groin for the past 4 to 5 days duration which has been gradually worsening. Patient describes pain to be sharp, 8/10 intensity, no aggravating, relieving factors. Denies any associated hematuria, dysuria, fever, chills, chest pain, dyspnea, dizziness. Admits to have nausea associated with vomiting x5 overnight secondary to pain. Renal ultrasound suggestive of right hydroureteronephrosis. KUB showed 3 mm distal right ureteral stone. Patient required several doses of IV narcotics for pain control while in ED. He presented to ED on July 16 with similar symptoms and was discharged home on Flomax, Zofran and as needed pain medications. He was advised to follow-up with urologist if could not pass the stone spontaneously. Denied any history of nephrolithiasis in the past. Admission Exam Per Admitting Provider Physical Exam: Vitals signs as noted above General Appearance:Thin, no apparent distress Head: normocephalic, Atraumatic Eyes: normal inspection, EOMI Neck: supple, Trachea midline Respiratory/Chest: Normal breath sounds, CTA, No accessory muscle use Cardiovascular: S1, S2, No murmur Abdomen/GI:Soft, R flank tender, Bowel sounds present Extremities/Musculoskeletal:normal inspection, no edema Neurologic/Psych:AAOX3, grossly no focal neurological deficits Skin: normal color, warm Principal Diagnosis Ureteral stone Obstructive uropathy Discharge Data Allergies Allergy/AdvReac Type Severity Reaction Status Date / Time No Known Allergies Allergy Unknown Verified 06/17/09 19:11 Consultations 07/20/23 07:49 Consult Urology Routine Procedures Performed Operation Date: 07/20/23 15:00 Actual Procedures p Cystoscopy, Right Retrograde, Right Ureteronephroscopy with Basket stone Extraction and Insertion Right Ureteral Stent (Left) - Teddy Marquez, DO Laboratory Results WBC 4.27 K/ul (4.8-10.8) L 07/21/23 06:55 RBC 4.01 M/uL (4.70-6.10) L 07/21/23 06:55 Hgb 12.3 g/dl (14.0-18.0) L D 07/21/23 06:55 Hct 36.3 % (42.0-52.0) L 07/21/23 06:55 MCV 90.5 fL (80.0-100.0) 07/21/23 06:55 MCH 30.7 pg (25.0-34.0) 07/21/23 06:55 MCHC 33.9 g/dL (32.0-36.0) 07/21/23 06:55 RDW Std Deviation 39.2 fL (36.4-46.3) 07/21/23 06:55 RDW Coeff of Kerri 11.9 % (11.5-14.5) 07/21/23 06:55 Plt Count 166 K/uL (130-400) 07/21/23 06:55 MPV 9.8 fL (9.4-12.4) 07/21/23 06:55 Immature Gran % (Auto) 0.2 % 07/20/23 03:43 Neut % (Auto) 87.9 % 07/20/23 03:43 Lymph % (Auto) 7.7 % 07/20/23 03:43 [place] % (Auto) 3.9 % 07/20/23 03:43 Eos % (Auto) 0.2 % 07/20/23 03:43 Baso % (Auto) 0.1 % 07/20/23 03:43 Neut # (Auto) 7.83 K/uL (1.40-6.50) H 07/20/23 03:43 Lymph # (Auto) 0.69 K/uL (1.20-3.40) L 07/20/23 03:43 [place] # (Auto) 0.35 K/uL (0.11-0.59) 07/20/23 03:43 Eos # (Auto) 0.02 K/uL (0.00-0.50) 07/20/23 03:43 Baso # (Auto) 0.01 K/uL (0.00-0.20) 07/20/23 03:43 Immature Gran # (Auto) 0.02 K/uL (0.01-0.20) 07/20/23 03:43 Sodium 139 mmol/L (136-145) 07/21/23 06:55 Potassium 4.3 mmol/L (3.5-5.1) 07/21/23 06:55 Chloride 108 mmol/L (98-107) H 07/21/23 06:55 Carbon Dioxide 29 mmol/L (21-32) 07/21/23 06:55 Anion Gap 2 (3-11) L 07/21/23 06:55 BUN 15 mg/dl (6-23) 07/21/23 06:55 Creatinine 1.02 mg/dl (0.6-1.4) 07/21/23 06:55 Est Cr Clr Drug Dosing 100.0 ml/min 07/21/23 06:55 Est GFR ( Amer) 112.2 ml/min 07/21/23 06:55 Est GFR (Non-Af Amer) 96.8 ml/min 07/21/23 06:55 BUN/Creatinine Ratio 14.7 (10-20) 07/21/23 06:55 Glucose 86 mg/dl (70-99(Fasting)) 07/21/23 06:55 Calcium 8.1 mg/dl (8.6-10.3) L 07/21/23 06:55 Magnesium 1.8 mg/dl (1.7-2.4) 07/21/23 06:55 Total Bilirubin 0.8 mg/dl (0.2-1.0) 07/20/23 03:40 AST 19 U/L (13-39) 07/20/23 05:08 ALT 36 U/L (7-52) 07/20/23 03:40 Alkaline Phosphatase 53 U/L (34-104) 07/20/23 03:40 Total Protein 8.3 gm/dl (6.0-8.3) 07/20/23 03:40 Albumin 4.8 gm/dl (3.4-5.0) 07/20/23 03:40 Globulin 3.5 gm/dl (2.5-4.0) 07/20/23 03:40 Albumin/Globulin Ratio 1.4 (0.9-2) 07/20/23 03:40 Lipase 37 U/L (11-82) 07/20/23 03:40 TSH 0.441 uIu/ml (0.300-4.500) 07/21/23 06:55 Urine Color Dark Yellow 07/20/23 04:53 Urine Appearance Clear (Clear) 07/20/23 04:53 Urine pH 6.0 (4.5-7.5) 07/20/23 04:53 Ur Specific [place] 1.032 (1.000-1.030) H 07/20/23 04:53 Urine Protein 1+ (Negative) H 07/20/23 04:53 Urine Glucose (UA) Negative (Negative) 07/20/23 04:53 Urine Ketones 4+ (Negative) H 07/20/23 04:53 Urine Blood Negative (Negative) 07/20/23 04:53 Urine Nitrite Negative (Negative) 07/20/23 04:53 Urine Bilirubin Negative (Negative) 07/20/23 04:53 Urine Urobilinogen Negative (Negative) 07/20/23 04:53 Ur Leukocyte Esterase Negative (Negative) 07/20/23 04:53 Urine WBC (Auto) 1-5 /hpf (0-5) 07/20/23 04:53 Urine RBC (Auto) 0-4 /hpf (0-4) 07/20/23 04:53 U Hyaline Cast (Auto) 1-5 /lpf (0-5) 07/20/23 04:53 U Epithel Cells (Auto) 5-10 /lpf (0-5) H 07/20/23 04:53 Urine Bacteria (Auto) Negative (Negative) 07/20/23 04:53 Lyme Disease IgG Ab Negative (Negative) 07/21/23 06:55 Lyme Disease IgM Ab Negative (Negative) 07/21/23 06:55 Impressions KUB X-Ray 07/20/23 03:18 KUB HISTORY: R flank pain, known stone COMPARISON: Abdomen and pelvis CT 07/16/2023. FINDINGS: The bowel gas pattern is unremarkable. There are no dilated loops of small bowel to suggest an obstruction. There is a 3 mm stone within the distal right ureter. This is unchanged in position compared the prior CT examination. Additional calcifications in the deep pelvis are consistent with phleboliths. No additional ureteral calculi. No pneumoperitoneum or pneumatosis. IMPRESSION: No change in the 3 mm distal right ureteral stone. ACT 112: Negative or not required by law. Electronically signed by: Matias Guzman M.D. 07/20/2023 7:46 AM Renal Ultrasound 07/20/23 04:08 RENAL ULTRASOUND HISTORY: R flank pain, known stone. [place]? COMPARISON: Abdomen and pelvis CT 07/16/2023. FINDINGS: Right kidney: 10.4 cm. Mild right hydroureteronephrosis. The patient's known distal right ureteral stone is not identified by this modality. Normal corticomedullary differentiation and cortical thickness. Trace right perinephric fluid. Left kidney: 11.6 cm. No hydronephrosis. Normal corticomedullary differentiation and cortical thickness. Bladder: No bladder wall thickening. Only the left ureteral jet was identified. IMPRESSION: No change in the mild right hydroureteronephrosis. The patient's known distal right ureteral stone is not identified by this modality. ACT 112: Negative or not required by law. Electronically signed by: Matias Guzman M.D. 07/20/2023 7:49 AM Retrograde Pyelogram 07/20/23 09:00 FL retrograde includes kub CLINICAL HISTORY: RT SIDE STENT COMPARISON STUDY: None. FLUOROSCOPY TIME: 21 seconds FLUOROSCOPY IMAGES: 2 Ka,r: 3.3 mGy FINDINGS: There is retrograde opacification of the right renal collecting system followed by placement of a right ureteral stent. The ureteral stent appears in good position. IMPRESSION: Fluoroscopic assistance as above. ACT 112: Negative or not required by law. Electronically signed by: Matias Guzman M.D. 07/20/2023 12:51 PM Ordered Studies 07/20/23 04:08 US Renal Bladder [US renal/blad retro comp] Stat 07/20/23 09:00 FL retrograde includes kub Routine Hospital Course (1) Right ureteral calculus: Renal Colic: Obstructive Uropathy: -KUB:No change in the 3 mm distal right ureteral stone. -Renal USD:No change in the mild right hydroureteronephrosis. The patient's known distal right ureteral stone is not identified by this modality. -UA not suggestive of UTI No signs of Sepsis --S/P Cystoscopy with Right Retrograde, Right Ureteroscopy, Basket stone Extraction, and InsertionRight Ureteral Stent by Dr. Marquez on 07/20/2023 Continue IV fluids Continue Flomax Pyridium PRN Urology consulted--appreciate input Bladder scan PRN Pain control Plan to discharge home today Needs follow-up with urology upon discharge Sinus bradycardia with Premature atrial complexes Asymptomatic Bradycardia likely physiologic PACs on repeat EKG Normal TSH Lyme screen negative Not on any AV derek blocking agents Advised to follow-up with PCP/cardiology as outpatient Dysplastic nevus As per records DVT Px: SCDs for now CODE STATUS Full code Disposition Home Total Time Total Time Spent Total Time Spent (In Minutes): 55 minutes Discharge Plan Discharge Items Patient Disposition: Home - Self-Care Reason For Visit: URETERAL STONE Discharge Diagnosis: Ureteral stone Obstructive uropathy Activity: Per Instructions section Exercise/Sports: Gradually increase as tolerated Non-emergency contact: Primary Care Provider and Urologist Call non-emergency contact if: you have any medication questions, your symptoms worsen, your pain is concerning for you and you have a fever Follow-up/Referrals: Teddy Marquez DO [Physician] - 07/23/23 2:00 pm Pedro Collins MD [Primary Care Provider] - (Date & Time 07/24/2023 2:00 PM Provider Enid Grace MD [facility] ) Diet: Regular Addtl Attending Provider Instructions: Follow-up with your primary care physician Dr. Collins on 07/24/2023 2:00 PM Follow-up with your urologist Dr. Marquez on 07/23/2023 at 2 PM as scheduled Seek immediate medical attention if your symptoms reoccur or worsen Please take all medications as instructed on discharge list below. Please call if you have any questions or problems. 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 Please call our office at [phone] with any questions, concerns or need to reschedule appointments for any reason. We are happy to assist you. While you have a ureteral stent in place: Some discomfort is normal. Certain movements may trigger pain or a feeling that you need to urinate. You may also feel mild soreness or pressure before or during urination. These symptoms should go away a few days after the stent is removed. Your urine may be slightly pink or red. This is due to bleeding caused by minor irritation from the stent. This may happen on and off while you have the stent, it is not harmful and is to be expected. Medication to help minimize discomfort or bladder spasms, or to prevent infection may be prescribed. Take this as directed. Drink plenty of fluids to help flush out your urinary tract. If you go home with a catheter, wash with soapy water and a fresh washcloth twice daily. We recommend mild bar soap such as Dial or Dove. How long will you need a stent? An appointment should already be made for you for stent removal, unless directed otherwise. The stent is often taken out after the blockage in the ureter is treated or the ureter has healed. This may take 1-2 weeks, or longer. If a stent is needed for a longer period of time, it may need to be exchanged every few months. Likely prior to your followup appointment you will be asked to get an X-ray, please complete this the night before or morning of your appointment. When to call [facility] at [phone]: Your urine contains heavy blood clots You are constantly leaking urine Fever of 101F or higher, chills, nausea, or vomiting Your pain is not relieved with medication The end of the stent comes out of your urethra Pending Studies at Discharge: No Stand-Alone Forms: [facility], Smoking Cessation Medications and DC Order Prescriptions: New famotidine [Acid Radio/Tv Technician (famotidine)] 10 mg Tablet 10 mg PO BID Qty: 10 0RF ketorolac 10 mg Tablet 10 mg PO BID PRN (Reason: pain) Qty: 10 0RF phenazopyridine [Pyridium] 200 mg Tablet 200 mg PO TID PRN (Reason: pain) Qty: 15 0RF Continued polyethylene glycol 3350 [Miralax] 17 gram Powder In Packet 17 g PO PRN Qty: 0 tamsulosin [Flomax] 0.4 mg capsule 0.4 mg PO DAILY Qty: 10 0RF Rx Instructions: Start Date 07/16/23 - End Date 07/26/23 ondansetron 4 mg tablet,disintegrating 4 mg PO Q6H PRN (Reason: nausea and vomiting) Qty: 12 0RF bisacodyl [Dulcolax (bisacodyl)] 10 mg Suppository 10 mg CA DAILY PRN (Reason: Constipation) Discontinued ibuprofen 600 mg Tablet 600 mg PO Q6HR PRN Qty: 0 Patient Comments: PRN PAIN oxycodone 5 mg tablet 5 mg PO Q6 PRN (Reason: pain) Qty: 12 0RF Discharge Orders: Discharge Order (Routine); Ordered 07/21/23 Ordered By: Jonathan Nieto/Other Patient Handouts: Phenazopyridine Oral Tablet, Tamsulosin Oral Capsule, Understanding Kidney Stones, Cystoscopy Admission Data Admit Date/Time: 07/20/23 07:45 Attending Provider: Jonathan Barnett Admit Provider: Jonathan Barnett Primary Care Provider: Pedro Collins Other Providers: Davin Figueredo ; Adonis Roberts ; Frank Price ; Nemo Sexton ; Teddy Marquez ; Kasandra Mckee ; Glory Regalado ; Michael Healy ; Kathi Mackey ; Estefania Church ; Kevin Galdamez ; Kenny Cummins
--- NOTE | 2023-07-22 06:04 | Electrocardiogram Report ---
Test Reason : Blood Pressure : / mmHG Vent. Rate : 055 BPM Atrial Rate : 055 BPM P-R Int : 148 ms QRS Dur : 092 ms QT Int : 420 ms P-R-T Axes : 037 079 056 degrees QTc Int : 401 ms Sinus bradycardia Otherwise normal ECG When compared with ECG of 07-SEP-2022 12:49, Premature atrial complexes are no longer Present Nonspecific T wave abnormality no longer evident in Anterior leads Confirmed by Philip Ji ([id number]) on 07/22/2023 6:03:40 AM Referred By: REFERRED SELF Confirmed By:Philip Ji
== END 2023-07-21 14:00 | disposition home or self-care (01) | DRG 661 ==
LOC: ED 03:06 → EDINP 07:45 → 2W 14:55
DX: R00.1 Bradycardia, unspecified; N13.2 Hydronephrosis with renal and ureteral calculous obstruction; I49.1 Atrial premature depolarization